=== PATIENT | female | born 1960 | race Caucasian/White ===

== ENCOUNTER 2017-08-24 10:17 | Emergency (ER) | payer OTHER ==
[~2017-08-24] VITALS: Ht 177.8 cm; Wt 63.0 kg
[~2017-08-24 10:17] MED LIST: Z.0.NO CURRENT MEDS
[2017-08-24 10:49] VITALS: BP 138/85; PULSE 103; RESP 16; TEMP 98.6; O2SAT 99
--- NOTE | 2017-08-24 11:39 | PD ---
HPI Chief Complaint: Cold / Flu Symptoms Time Seen by Provider: 11:37 Travel History International Travel<30 days: No Contact w/Intl Traveler<30days: No Traveled to known affect area: No History of Present Illness HPI Patient presents with swelling to her eyelids, right rash that appeared on them overnight. Patient states that there is a lot of dust and work been done on her house. Patient is a smoker however she does not feel any wheezing or shortness of breath presently. Patient also denies any swelling to her lips or tongue. No known drug allergy Past medical history is significant for appendectomy, tubal ligation, hysterectomy PFSH Past Medical History Medical History: Denies Significant Hx Hx Anticoagulant Therapy: No Tubal Ligation: Yes Past Surgical History Appendectomy: Yes Hysterectomy: Yes Social History Alcohol Use: No (3 drinks/ day) Tobacco Use: Yes (1/2-1ppd ) Substance Use: No Allergies-Medications (Allergen,Severity, Reaction): Coded Allergies: No Known Allergies (Verified Allergy, Mild, 08/02/07) Reported Meds & Prescriptions Reported Meds & Active Scripts Active No Active Prescriptions or Reported Medications Review of Systems General / Constitutional: No: Fever Eyes: Positive: Other ( swollen eyelids), No: Visual changes HENT: No: Headaches Cardiovascular: No: Chest Pain or Discomfort Respiratory: Positive: Cough Gastrointestinal: No: Abdominal Pain Genitourinary: No: Dysuria Musculoskeletal: No: Pain Skin: No Rash Neurologic: No: Weakness Psychiatric: No: Depression Endocrine: No: Polydipsia Hematologic/Lymphatic: No: Easy Bruising Physical Exam Narrative GENERAL: SKIN: Warm and dry. HEAD: Atraumatic. Normocephalic. EYES: Pupils equal and round. No scleral icterus. No injection or drainage. ENT: No nasal bleeding or discharge. Mucous membranes pink and moist. NECK: Trachea midline. No JVD. CARDIOVASCULAR: Regular rate and rhythm. RESPIRATORY: No accessory muscle use. Clear to auscultation. Breath sounds equal bilaterally. GASTROINTESTINAL: Abdomen soft, non-tender, nondistended. MUSCULOSKELETAL: Extremities without clubbing, cyanosis, or edema. No obvious deformities. NEUROLOGICAL: Awake and alert. No obvious cranial nerve deficits. Motor grossly within normal limits. Five out of 5 muscle strength in the arms and legs. Normal speech. PSYCHIATRIC: Appropriate mood and affect; insight and judgment normal. Data Data Last Documented VS Vital Signs Date Time Temp Pulse Resp B/P (MAP) Pulse Ox O2 Delivery O2 Flow Rate FiO2 08/24/17 11:34 18 Room Air 08/24/17 10:49 98.6 103 138/85 (102) 99 MDM Medical Decision Making Medical Screen Exam Complete: Yes Emergency Medical Condition: Yes Medical Record Reviewed: Yes Differential Diagnosis Seasonal allergy versus dermatitis versus uvular edema versus bronchospasm Narrative Course Patient tolerated steroid as well as antihistamine 1 and 2 receptor blockers Diagnosis Primary Impression: Seasonal allergy with angioedema Patient Instructions: General Allergic Reaction (ED), General Instructions Scripts Famotidine (Pepcid) 40 Mg Tab 40 MG PO DAILY, #5 TAB 0 Refills Prov: El Espinoza MD 08/24/17 Loratadine (Claritin) 10 Mg Cap 10 MG PO DAILY for Allergy Management for 5 Days, #5 CAP 0 Refills Prov: El Espinoza MD 08/24/17 Methylprednisolone Dosepak (Medrol Dosepak) 4 Mg Dspk 4 MG PO DIRECTED, #1 DSPK 0 Refills Per Pharmacist direction Prov: El Espinoza MD 08/24/17 El Espinoza MD Aug 24, 2017 11:39
[2017-08-24] MEDS ORDERED: FAMO1TAB73 PO (12:54)
[2017-08-24] MEDS ORDERED: CLAR10CA3 PO (12:54)
[2017-08-24] MEDS ORDERED: MEDR4PAK PO (12:54)
[2017-08-24] MEDS ORDERED: LORATADINE 10 MG TAB PO ONE (13:00)
[2017-08-24] MEDS ORDERED: DEXAMETHASONE SOD PHOS 20 MG/5 ML VIAL IM ONE (13:00)
[2017-08-24] MEDS ORDERED: FAMOTIDINE 20 MG TAB PO ONE (13:00)
== END 2017-08-24 13:55 | disposition home or self-care (01) ==
LOC: NEPD 10:17
DX: J30.2 Other seasonal allergic rhinitis (principal); T78.3XXA Angioneurotic edema, initial encounter; Z72.0 Tobacco use
CPT/HCPCS: 96372; 99283; J1100